=== PATIENT | female | born 1995 | race Caucasian/White ===

== ENCOUNTER 2019-06-15 17:10 | Emergency (ER) | payer OTHER ==
[2019-06-15 17:20] VITALS: BP 124/67
[2019-06-15 17:55] LABS: BASOPHILS % (AUTO) 0.2 %; EOSINOPHILS # (AUTO) 0.1 10^3/uL (0.0-0.7); EOSINOPHILS % (AUTO) 0.9 %; HGB - HEMOGLOBIN 11.7 g/dL (12.0-16.0); LYMPHOCYTES # (AUTO) 2.8 10^3/uL (1.5-3.5); MEAN CORPUSCULAR HEMOGLOBIN 30.7 pg (27.0-31.0); MEAN CORPUSCULAR HGB CONC 33.7 g/dL (32.0-36.0); MEAN CORPUSCULAR VOLUME 91.1 fL (81.0-99.0); MEAN PLATELET VOLUME 10.6 fL (7.9-10.8); MONOCYTES # (AUTO) 0.6 10^3/uL (0.0-1.0); MONOCYTES % (AUTO) 5.8 %; NEUTROPHILS # (AUTO) 6.1 10^3/uL (1.5-6.6); NEUTROPHILS % (AUTO) 63.4 %; PLT - PLATELET COUNT 349 10^3/uL (130-450); RED BLOOD COUNT 3.81 10^6/uL (4.20-5.40); RED CELL DISTRIBUTION WIDTH 13.3 % (12.0-15.0); WHITE BLOOD COUNT 9.6 x10^3/uL (4.8-10.8)
--- NOTE | 2019-06-15 17:55 | ED Physician Documentation ---
PD HPI NVD - Stated complaint Stated Complaint: 11 WKS, concerns - Chief complaint Chief Complaint: Abd Pain - History obtained from History obtained from: Patient - History of Present Illness Timing - onset: Other (G1 at 11 weeks was sick last week for 5 days with fever, body aches, vomiting. She is all better now but wonders if this had any effect on her . [place] did [place] have any openings. She feels fine now without cramping, bleeding, nausea, urinary complaints.) Review of Systems Constitutional: denies: Fever, Chills, Myalgias, Fatigue Nose: denies: Rhinorrhea / runny nose, Congestion Throat: denies: Sore throat Respiratory: denies: Dyspnea, Cough GI: denies: Abdominal Pain, Nausea, Vomiting PD PAST MEDICAL HISTORY - Allergies Allergies/Adverse Reactions: Allergies Allergy/AdvReac Type Severity Reaction Status Date / Time No Known Drug Allergies Allergy Verified 06/15/19 17:13 PD ED PE NORMAL - Vitals Vital signs reviewed: Yes - General General: Alert and oriented X 3, No acute distress - Abdomen Abdomen: Normal bowel sounds, Soft, Non tender, Other (Bedside ultrasound shows single live intrauterine with a rate of 143 and positive motion) - Neuro Neuro: Alert and oriented X 3, Normal speech Results - Vitals Vitals: Vital Signs - 24 hr 06/15/19 17:13 Temperature 36.6 C Heart Rate 72 Respiratory 16 Rate Blood Pressure 124/67 O2 Saturation 100 Oxygen O2 Source Room air - Labs Labs: Laboratory Tests 06/15/19 06/15/19 06/15/19 17:14 17:14 17:57 WBC 9.6 RBC 3.81 L Hgb 11.7 L Hct 34.7 L MCV 91.1 MCH 30.7 MCHC 33.7 RDW 13.3 Plt Count 349 MPV 10.6 Neut # (Auto) 6.1 Lymph # (Auto) 2.8 [place] # (Auto) 0.6 Eos # (Auto) 0.1 Baso # (Auto) 0.0 Absolute Nucleated RBC 0.00 Nucleated RBC % 0.0 Sodium 137 Potassium 3.6 Chloride 101 Carbon Dioxide 23 Anion Gap 13.0 BUN 9 Creatinine 0.6 Estimated GFR (MDRD) 126 Glucose 90 Calcium 9.3 Total Bilirubin 0.3 AST 23 ALT 25 Alkaline Phosphatase 61 Total Protein 7.5 Albumin 3.4 Globulin 4.1 Albumin/Globulin Ratio 0.8 L Lipase 27 Urine Color YELLOW Urine Clarity CLEAR Urine pH 6.5 Ur Specific [place] 1.015 Urine Protein NEGATIVE Urine Glucose (UA) NEGATIVE Urine Ketones TRACE Urine Occult Blood NEGATIVE Urine Nitrite NEGATIVE Urine Bilirubin NEGATIVE Urine Urobilinogen 0.2 (NORMAL) Ur Leukocyte Esterase NEGATIVE Ur Microscopic Review NOT INDICATED Urine Culture Comments NOT INDICATED PD MEDICAL DECISION MAKING - ED course ED course: This is a G1 at 11 weeks who had a flulike illness last week and now has concerns about the health of her baby. No abnormalities on exam or labs of note and she was reassured. Departure - Departure Disposition: 01 Home, Self Care Clinical Impression: Viral syndrome Qualifiers: Weeks of gestation: 11 weeks Qualified Code(s): Z3A.11 - 11 weeks gestation of Condition: Good Record reviewed to determine appropriate education?: Yes Instructions: ED Viral Syndrome Comments: Your work-up today was negative, no specific follow-up is needed except for routine care as long as you remain asymptomatic.
[2019-06-15 18:05] LABS: BILIRUBIN,URINE NEGATIVE (NEGATIVE); GLUCOSE, URINE (UA) NEGATIVE (NEGATIVE); KETONES,URINE (UA) TRACE mg/dL (NEGATIVE); LEUKOCYTE ESTERASE, URINE NEGATIVE (NEGATIVE); NITRITE,URINE NEGATIVE (NEGATIVE); OCCULT BLOOD,URINE NEGATIVE (NEGATIVE); PH,URINE 6.5 PH (5.0-7.5); PROTEIN,URINE NEGATIVE (NEGATIVE); UROBILINOGEN,URINE 0.2 (NORMAL) E.U./dL (NORMAL)
[2019-06-15 18:06] LABS: CLARITY,URINE CLEAR (CLEAR)
[2019-06-15 18:10] LABS: ALBUMIN 3.4 g/dL (3.2-5.5); ALBUMIN/GLOBULIN RATIO 0.8 (1.0-2.2); BILIRUBIN,TOTAL 0.3 mg/dL (0.2-1.0); CALCIUM 9.3 mg/dL (8.5-10.3); CREATININE 0.6 mg/dL (0.4-1.0); TOTAL PROTEIN 7.5 g/dL (6.7-8.2)
== END 2019-06-15 18:27 | disposition home or self-care (01) ==
LOC: ED 17:10
DX: O98.511 Other viral diseases complicating pregnancy, first trimester (principal); B34.9 Viral infection, unspecified; Z3A.11 11 weeks gestation of pregnancy
CPT/HCPCS: 36415; 80053; 81001; 81003; 83690; 84702; 85025; 86900; 86901; 87086; 99282; 99283

== ENCOUNTER 2019-11-15 14:51 | Outpatient (CLI) | payer OTHER ==
[2019-11-15 15:30] LABS: BASOPHILS % (AUTO) 0.3 %; EOSINOPHILS # (AUTO) 0.1 10^3/uL (0.0-0.7); EOSINOPHILS % (AUTO) 0.9 %; HGB - HEMOGLOBIN 10.1 g/dL (12.0-16.0); LYMPHOCYTES # (AUTO) 2.5 10^3/uL (1.5-3.5); LYMPHOCYTES % (AUTO) 26.5 %; MEAN CORPUSCULAR HEMOGLOBIN 29.4 pg (27.0-31.0); MEAN CORPUSCULAR HGB CONC 32.5 g/dL (32.0-36.0); MEAN CORPUSCULAR VOLUME 90.4 fL (81.0-99.0); MEAN PLATELET VOLUME 10.6 fL (7.9-10.8); MONOCYTES # (AUTO) 0.8 10^3/uL (0.0-1.0); MONOCYTES % (AUTO) 8.8 %; NEUTROPHILS # (AUTO) 5.7 10^3/uL (1.5-6.6); NEUTROPHILS % (AUTO) 61.7 %; PLT - PLATELET COUNT 302 10^3/uL (130-450); RED BLOOD COUNT 3.44 10^6/uL (4.20-5.40); RED CELL DISTRIBUTION WIDTH 13.4 % (12.0-15.0); WHITE BLOOD COUNT 9.3 x10^3/uL (4.8-10.8)
[2019-11-15 16:44] VITALS: BP 109/69
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
== END 2019-11-15 15:55 | disposition home or self-care (01) ==
LOC: WFO 14:51 → FBP 14:54 → WFO 15:55
PROVIDERS: ATTEND Obstetrics & Gynecology
DX: Z04.1 Encounter for examination and observation following transport accident (principal)
CPT/HCPCS: 36415; 85025; 86850; 86900; 86901; 99213

== ENCOUNTER 2021-10-15 16:25 | Outpatient (CLI) | payer OTHER ==
[2021-10-15 16:55] LABS: BILIRUBIN,URINE NEGATIVE (NEGATIVE); GLUCOSE, URINE (UA) NEGATIVE (NEGATIVE); KETONES,URINE (UA) NEGATIVE (NEGATIVE); LEUKOCYTE ESTERASE, URINE NEGATIVE (NEGATIVE); NITRITE,URINE NEGATIVE (NEGATIVE); OCCULT BLOOD,URINE NEGATIVE (NEGATIVE); PROTEIN,URINE NEGATIVE (NEGATIVE); UROBILINOGEN,URINE 0.2 (NORMAL) E.U./dL (NORMAL)
[2021-10-15 17:06] LABS: CLARITY,URINE CLEAR (CLEAR)
[2021-10-15 17:15] LABS: WBC,URINE 0-3 /HPF (0-5)
[2021-10-15 17:16] LABS: BACTERIA,URINE Few /HPF (None Seen); RBC,URINE 0-5 /HPF (0-5); SQUAMOUS EPITHELIAL CELL,UR FEW Squamous (<= Few)
== END 2021-10-15 16:26 | disposition home or self-care (01) ==
LOC: LAB.R 16:25
PROVIDERS: ATTEND Obstetrics & Gynecology
DX: Z32.01 Encounter for pregnancy test, result positive (principal)
CPT/HCPCS: 81001; 87086

== ENCOUNTER 2021-10-22 15:55 | Outpatient (CLI) | payer OTHER ==
--- NOTE | 2021-10-22 16:56 | Ultrasound Report ---
PROCEDURE: OB First Trimester INDICATIONS: + PREG TEST OUTSIDE/PRIOR DATING DATA: Last menstrual period (LMP): 08/22/2021. LMP-based estimated date of delivery (SALLY): 05/29/2022. First dating scan (date and location): 10/22/2021. Estimated date of delivery (SALLY) from first dating scan: 05/13/2022. The below data below was generated using the ultrasound SALLY of 05/13/2022 TECHNIQUE: Real-time scanning was performed of the fetus and maternal pelvic organs, with image documentation. COMPARISON: None FINDINGS: Living first trimester intrauterine with crown-rump length and heart beat Embryo: 4.1 cm, 11 weeks 0 days Heart rate: 157 bpm There is a small perigestational bleed measuring 1.9 x 0.7 x 3.4 cm. Measurement variability in dating: +/- 4 weeks by LMP, +/- 7 days by mean sac diameter (use before 6 weeks gestation if crown-rump length not able to be measured), +/- 5 days by crown-rump length (6-12 weeks gestation). Maternal organs: Ovaries. There is a small right corpus luteum cyst. IMPRESSION: Living first trimester intrauterine with crown-rump length and heart beat. Reviewed by: Otoniel Leyva MD on 10/22/2021 4:55 PM PST Approved by: Otoniel Leyva MD on 10/22/2021 4:55 PM PST Station ID: [id number]
== END 2021-10-22 15:56 | disposition home or self-care (01) ==
LOC: DI 15:55
PROVIDERS: ATTEND Obstetrics & Gynecology
DX: Z32.01 Encounter for pregnancy test, result positive (principal)

== ENCOUNTER 2021-10-30 13:35 | Outpatient (CLI) | payer OTHER ==
[2021-10-30 14:06] LABS: BASOPHILS % (AUTO) 0.4 %; EOSINOPHILS # (AUTO) 0.1 10^3/uL (0.0-0.7); EOSINOPHILS % (AUTO) 0.8 %; HCT - HEMATOCRIT 37.1 % (37.0-47.0); HGB - HEMOGLOBIN 12.5 g/dL (12.0-16.0); LYMPHOCYTES # (AUTO) 2.4 10^3/uL (1.5-3.5); LYMPHOCYTES % (AUTO) 23.4 %; MEAN CORPUSCULAR HEMOGLOBIN 29.8 pg (27.0-31.0); MEAN CORPUSCULAR HGB CONC 33.7 g/dL (32.0-36.0); MEAN CORPUSCULAR VOLUME 88.3 fL (81.0-99.0); MEAN PLATELET VOLUME 10.6 fL (7.9-10.8); MONOCYTES # (AUTO) 0.5 10^3/uL (0.0-1.0); MONOCYTES % (AUTO) 4.7 %; NEUTROPHILS # (AUTO) 7.3 10^3/uL (1.5-6.6); NEUTROPHILS % (AUTO) 70.2 %; PLT - PLATELET COUNT 320 10^3/uL (130-450); RED CELL DISTRIBUTION WIDTH 13.7 % (12.0-15.0); WHITE BLOOD COUNT 10.3 x10^3/uL (4.8-10.8)
[2021-10-31 11:47] LABS: HEPATITIS B SURFACE ANTIGEN NON-REACTIVE (NON-REACTIVE); HEPATITIS C ANTIBODY NON-REACTIVE (NON-REACTIVE)
[2021-10-31 15:16] LABS: HIV AG/AB 4TH GEN NON-REACTIVE (NON-REACTIVE)
== END 2021-10-30 13:36 | disposition home or self-care (01) ==
LOC: LAB 13:35
PROVIDERS: ATTEND Obstetrics & Gynecology
DX: Z36.89 Encounter for other specified antenatal screening (principal)
CPT/HCPCS: 36415; 85025; 86592; 86762; 86787; 86803; 86850; 86900; 86901; 87340; 87389

== ENCOUNTER 2021-11-05 08:12 | Outpatient (CLI) | payer OTHER ==
[2021-11-06 22:02] LABS: CHLAMYDIA TRACHOMATIS DNA NEGATIVE (NEGATIVE); NEISSERIA GONORRHOEAE DNA NEGATIVE (NEGATIVE); TRICHOMONAS VAGINALIS DNA NEGATIVE (NEGATIVE)
== END 2021-11-05 08:13 | disposition home or self-care (01) ==
LOC: LAB.R 08:12
PROVIDERS: ATTEND Obstetrics & Gynecology
DX: Z11.3 Encounter for screening for infections with a predominantly sexual mode of transmission (principal)
CPT/HCPCS: 87491; 87591; 87661

== ENCOUNTER 2021-12-26 18:00 | Outpatient (CLI) | payer OTHER ==
--- NOTE | 2021-12-26 20:16 | Ultrasound Report ---
PROCEDURE: OB Detailed Eval INDICATIONS: SUPERVISION OF NL PREG OUTSIDE/PRIOR DATING DATA: Last menstrual period (LMP): 08/22/2021. LMP-based estimated date of delivery (SALLY): 05/29/2022. First dating scan (date and location): 10/22/2021. Estimated date of delivery (SALLY) from first dating scan: 05/13/2022. The below data below was generated using the ultrasound SALLY of 05/13/2022 TECHNIQUE: Real-time scanning was performed of the fetus, with image documentation and biometric measurements. Endovaginal scanning: Not performed COMPARISON: 10/22/2021 FINDINGS: General: A single living intrauterine gestation is present. Presentation: Transverse with head to maternal left Placenta: Placental position is posterior, without previa. Amniotic fluid index: 12.1 cm, within normal limits for gestational age. heart rate: 160 beats per minute. Maternal cervical canal: 4.6 cm long and closed; normal length is 2.5 cm or more. biometrics: Biparietal diameter: 4.6 cm, 20 weeks 0 days Head circumference: 17.4 cm, 20 weeks 0 days Abdominal circumference: 16.0 cm, 21 weeks 1 day Femur length: 3.16 cm, 19 weeks 6 days Estimated gestational age from initial scan: 20 weeks 2 days Composite gestational age from present scan: 20 weeks 0 days Estimated weight and percentile: 355 g, 55th percentile Measurement variability in biometric dating: +/- 10 days from 12-20 weeks gestation, +/- 2 weeks from 20-30 weeks gestation, +/- 3 weeks at 30 weeks gestation or later. Anatomic survey: Neuro: Ventricles are normal at less than 10 mm. Cisterna magna is normal at 3-11 mm. Cerebellum i s normal in size and morphology. Nuchal skin fold: Normal at less than 6 mm between 14 and 20 weeks gestational age. Face: Nose and lips, facial profile are normal. Spine: No evidence for spina bifida. Heart: 4-chambered heart is present, with normal ventricular outflow tracts. Diaphragm: Diaphragm is intact. Stomach: Left-sided stomach is present. Kidneys: No hydronephrosis. Normal is less than 5 mm in 2nd trimester, less than 7 mm in 3rd trimester. Cord: 3 vessel cord has orthotopic insertion. Bladder: Normal in size. Extremities: All 4 extremities are visualized. IMPRESSION: 1. Living second trimester intrauterine . Current ultrasound age is 2 days less than clinica l age based on initial ultrasound. 2. Normal anatomy study. Reviewed by: Otoniel Leyva MD on 12/26/2021 8:15 PM PST Approved by: Otoniel Leyva MD on 12/26/2021 8:15 PM [facility] Station ID: [id number]
== END 2021-12-26 20:00 ==
LOC: DI 18:00
PROVIDERS: ATTEND Obstetrics & Gynecology
DX: Z34.02 Encounter for supervision of normal first pregnancy, second trimester (principal); Z3A.20 20 weeks gestation of pregnancy

== ENCOUNTER 2022-02-13 09:43 | Outpatient (CLI) | payer OTHER ==
[2022-02-13 10:56] LABS: HCT - HEMATOCRIT 29.5 % (37.0-47.0); HGB - HEMOGLOBIN 9.8 g/dL (12.0-16.0); MEAN CORPUSCULAR HEMOGLOBIN 29.6 pg (27.0-31.0); MEAN CORPUSCULAR HGB CONC 33.2 g/dL (32.0-36.0); MEAN CORPUSCULAR VOLUME 89.1 fL (81.0-99.0); MEAN PLATELET VOLUME 10.2 fL (7.9-10.8); RED BLOOD COUNT 3.31 10^6/uL (4.20-5.40); RED CELL DISTRIBUTION WIDTH 13.3 % (12.0-15.0); WHITE BLOOD COUNT 8.7 x10^3/uL (4.8-10.8)
== END 2022-02-13 09:44 | disposition home or self-care (01) ==
LOC: LAB 09:43
PROVIDERS: ATTEND Obstetrics & Gynecology
DX: Z34.00 Encounter for supervision of normal first pregnancy, unspecified trimester (principal); Z36.89 Encounter for other specified antenatal screening
CPT/HCPCS: 36415; 82950; 85027

== ENCOUNTER 2022-02-18 18:16 | Outpatient (CLI) | payer OTHER ==
[2022-02-18 18:35] VITALS: BP 107/67
[2022-02-18 19:19] LABS: BILIRUBIN,URINE NEGATIVE (NEGATIVE); GLUCOSE, URINE (UA) NEGATIVE (NEGATIVE); KETONES,URINE (UA) NEGATIVE (NEGATIVE); LEUKOCYTE ESTERASE, URINE TRACE (NEGATIVE); NITRITE,URINE NEGATIVE (NEGATIVE); OCCULT BLOOD,URINE NEGATIVE (NEGATIVE); PROTEIN,URINE NEGATIVE (NEGATIVE); UROBILINOGEN,URINE 0.2 (NORMAL) E.U./dL (NORMAL)
[2022-02-18 19:21] LABS: CLARITY,URINE HAZY (CLEAR)
[2022-02-18 19:27] LABS: BACTERIA,URINE Many /HPF (None Seen); RBC,URINE 0-5 /HPF (0-5); SQUAMOUS EPITHELIAL CELL,UR MOD Squamous (<= Few)
--- NOTE | 2022-02-18 20:05 | PROVIDER PROGRESS NOTE ---
- HPI Chief Complaint: Labor Current : Vital Signs Temperature 98.6 F 02/18/22 18:25 Heart Rate 98 02/18/22 18:25 Respiratory Rate 16 02/18/22 18:25 Blood Pressure 107/67 02/18/22 18:25 O2 Saturation 99 02/18/22 18:25 Temperature 98.6 F 02/18/22 18:25 Heart Rate 98 02/18/22 18:25 Respiratory Rate 16 02/18/22 18:25 Blood Pressure 107/67 02/18/22 18:25 O2 Saturation 99 02/18/22 18:25 - Procedures NST Procedure: 02/18/22 Start 18:27 Stop 19:21 EFM 140 mod nohelia 15x15 accels no decels TOCO: quiet Service Date of procedure: 02/18/22 - Plan Plan: ID: Patient is a @ 28 weeks gestation who presents for assessment of labor. HPI: Patient reports having contractions since 1600 today. Describes regular abdominal tightening with low back pain appx every 3 minutes, lasting about a minute. Denies LOF, VB. Affirms movement. States she is going through a divorce and had an extremely stressful day today. Had prior delivery at 41 wga. PNC: LMP: 08/22/2021 SALLY by LMP:05/29/2022 Initial U/S:10/22/2021 @ 11w0d NOT c/w LMP with an SALLY of 05/13/2022 FINAL SALLY: 05/13/2022 O pos/Rubella- equivocal VZV:immune Genetic testing: Quad screen ordered 11/30/21, but did not perform as was no longer interested. FAS: WNL EFW 305g 55th%ile, 3VC, placenta posterior without previa, FÁTIMA wnl Glucola- ordered 01/25 Influenza: Received this season TDAP Covid: Moderna #03 April 2021 #04 May 2021 GBS @ ___ wks HSV: One outbreak previously. Prophylaxis at 36 weeks. Breast pump Rx MOD: . pp contraception: Likely nuvaring vs partner vasectomy pap:05/29/2021 NILM, 05/12/2019 LSIL ROS: As per HPI, otherwise remaining systems are negative. PE: VS: 98.6 83 107/67 18 99 GEN: NAD HEAD: NCAT EYES: No scleral icterus or conjunctival injection CV: RRR RESP: CTAB, normal effort ABD: gravid, S&NT/ND PSYCH: appropriate affect NEURO: alert and oriented, normal gait and coordination EXT: WWP FFN neg GCCT/trich wnl Yeast/BV neg UA c/w contamination Formal US shows CL 5.0 cm A/P: 26 yo at 28 wga here with concern for contractions. DX: False labor CL 5.0 cm in prelim read/FFN neg CAT I/AGA tracing UA c/w contamination, no indication of infection Reassured patient regarding lack of evidence for labor Recommended continued intake of water Warning signs reviewed FU in clinic this week DOS: 02/18/22 NST read: 02/18/22
--- NOTE | 2022-02-18 20:20 | Ultrasound Report ---
PROCEDURE: OB Limited INDICATIONS: CONTRA. 28WK CX l OUTSIDE/PRIOR DATING DATA: Last menstrual period (LMP): 08/22/2021. LMP-based estimated date of delivery (SALLY): 05/29/2022. First dating scan (date and location): 10/22/2021. Estimated date of delivery (SALLY) from first dating scan: 05/13/2022. The below data below was generated using the ultrasound SALLY of 05/13/2022 TECHNIQUE: Real-time scanning was performed of the fetus, with image documentation. Endovaginal scanning: Performed for better visualization of the cervix. COMPARISON: OB ultrasound 12/26/2021 and 10/22/2021 FINDINGS: A single living intrauterine gestation is present. Presentation: Breech Placenta: Placental position is posterior, without previa. Amniotic fluid index: 16.7 cm, normal for gestational age. Single deepest vertical fluid pocket: 4.9 cm. heart rate: 145 beats per minutes. Maternal cervical canal: 5.1 cm long; normal length is 2.5 cm or more. Estimated gestational age from initial scan: 28 weeks 0 days. IMPRESSION: 1.Single live intrauterine . 2.Amniotic fluid index within normal limits. 3.Cervix is closed and measures 5.1 cm. Reviewed by: Yeison Boyle MD on 02/18/2022 8:19 PM PDT Approved by: Yeison Boyle MD on 02/18/2022 8:19 PM PDT Station ID: [id number]
[2022-02-18 22:36] LABS: BACTERIAL VAGINOSIS DNA NEGATIVE (NEGATIVE); CANDIDA GLABRATA DNA NEGATIVE (NEGATIVE); CANDIDA GROUP DNA NEGATIVE (NEGATIVE); CANDIDA KRUSEI DNA NEGATIVE (NEGATIVE); TRICHOMONAS VAGINALIS DNA NEGATIVE (NEGATIVE)
[2022-02-18 23:22] LABS: CHLAMYDIA TRACHOMATIS DNA NEGATIVE (NEGATIVE); NEISSERIA GONORRHOEAE DNA NEGATIVE (NEGATIVE)
== END 2022-02-18 19:50 | disposition home or self-care (01) ==
LOC: WFO 18:16 → FBP 18:20 → WFO 19:50
PROVIDERS: ATTEND Obstetrics & Gynecology
DX: O47.03 False labor before 37 completed weeks of gestation, third trimester (principal); O32.1XX0 Maternal care for breech presentation, not applicable or unspecified; Z3A.28 28 weeks gestation of pregnancy
CPT/HCPCS: 81001; 81003; 81514; 82731; 87086; 87491; 87591; 87661; 99215

== ENCOUNTER 2022-03-15 06:54 | Outpatient (CLI) | payer OTHER ==
--- NOTE | 2022-03-15 10:42 | Ultrasound Report ---
PROCEDURE: OB F/U or Repeat INDICATIONS: UTERINE SIZE DATE DISCREPANCY OUTSIDE/PRIOR DATING DATA: Last menstrual period (LMP): August 22, 2021. LMP-based estimated date of delivery (SALLY): May 29, 2022. First dating scan (date and location): October 22, 2021. Estimated date of delivery (SALLY) from first dating scan: May 13, 2022. TECHNIQUE: Real-time scanning was performed of the fetus, with image documentation and biometric measurements. COMPARISON: Prior studies dating back to October 22, 2021 FINDINGS: General: A single living intrauterine gestation is present. Presentation: Breech Placenta: Placental position is posterior, without previa. Amniotic fluid index: 15.3 cm, appropriate for gestational age. heart rate: 144 beats per minute. Maternal cervical canal: 4.7 cm long; normal length is 2.5 cm or more. biometrics: Biparietal diameter: 8 cm Head circumference: 30.1 cm Abdominal circumference: 26 cm Femur length: 5.9 cm Estimated gestational age from initial scan: 31 weeks, 4 days. Composite gestational age from present scan: 30 weeks, 4 days Estimated weight and percentile: 1644.9 g; 17.6 percentile Measurement variability in biometric dating: +/- 10 days from 12-20 weeks gestation, +/- 2 weeks from 20-30 weeks gestation, +/- 3 weeks at 30 weeks gestation or more. Other: Not applicable. IMPRESSION: Live single intrauterine gestation as detailed above. Reviewed by: Christ Raymond MD on 03/15/2022 10:41 AM PDT Approved by: Christ Raymond MD on 03/15/2022 10:41 AM PDT Station ID: [id number]
== END 2022-03-15 06:55 | disposition home or self-care (01) ==
LOC: DI 06:54
PROVIDERS: ATTEND Obstetrics & Gynecology
DX: O26.843 Uterine size-date discrepancy, third trimester (principal); Z3A.30 30 weeks gestation of pregnancy

== ENCOUNTER 2022-04-19 11:00 | Outpatient (CLI) | payer OTHER | END 2022-04-19 23:59 | disposition home or self-care (01) | LOC: LAB.WC 11:00 | PROVIDERS: ATTEND Nurse Practitioner | DX: Z36.85 Encounter for antenatal screening for Streptococcus B (principal) | CPT/HCPCS: 87797 ==

== ENCOUNTER 2022-04-25 16:56 | Outpatient (CLI) | payer OTHER ==
--- NOTE | 2022-04-26 13:14 | Ultrasound Report ---
PROCEDURE: OB F/U or Repeat INDICATIONS: UTERINE SIZE DATE DISCREPANCY OUTSIDE/PRIOR DATING DATA: Last menstrual period (LMP): 08/22/2021. LMP-based estimated date of delivery (SALLY): 05/29/2022. First dating scan (date and location): 10/22/2021. Estimated date of delivery (SALLY) from first dating scan: 05/13/2022. The below data below was generated using the first trimester ultrasound SALLY of 05/13/2022 TECHNIQUE: Real-time scanning was performed of the fetus, with image documentation and biometric measurements. Endovaginal scanning: Not performed COMPARISON: None. FINDINGS: General: A single living intrauterine gestation is present. Presentation: Vertex Placenta: Placental position is posterior, without previa. Amniotic fluid index: 14.4 cm, normal for gestational age. Largest pocket is 5.4 cm heart rate: 166 beats per minute. Maternal cervical canal: Closed and 5.2 cm long; normal length is 2.5 cm or more. biometrics: Biparietal diameter: 9.4 cm, 38 weeks, 1 day Head circumference: 34.0 cm, 39 weeks, 1 day Abdominal circumference: 33.3 cm, 37 weeks, 1 day Femur length: 6.8 cm, 34 weeks, 6 days Estimated gestational age from initial scan: 37 weeks, 3 days. Composite gestational age from present scan: 37 weeks, 2 days Estimated weight and percentile: 3071 g, 45th percentile Measurement variability in biometric dating: +/- 10 days from 12-20 weeks gestation, +/- 2 weeks from 20-30 weeks gestation, +/- 3 weeks at 30 weeks gestation or more. IMPRESSION: 1. Single living intrauterine with measurements in good agreement with initially assigned g estational age. 2. Normal amniotic fluid volume. Reviewed by: Abimbola Oswald MD on 04/26/2022 1:12 PM PDT Approved by: Abimbola Oswald MD on 04/26/2022 1:12 PM PDT Station ID: [id number]
== END 2022-04-25 16:57 | disposition home or self-care (01) ==
LOC: DI 16:56
PROVIDERS: ATTEND Obstetrics & Gynecology
DX: O26.843 Uterine size-date discrepancy, third trimester (principal); Z3A.37 37 weeks gestation of pregnancy

== ENCOUNTER 2022-08-05 22:49 | Emergency (ER) | payer OTHER ==
--- NOTE | 2022-08-05 23:48 | ED Physician Documentation ---
History of Present Illness - Stated complaint Stated Complaint: FEVER,CHILLS - Chief complaint Chief Complaint: General - History obtained from History obtained from: Patient - Additonal information Additional information: 26-year-old woman, previously healthy, occasional vape pen user (has not smoked since illness), presents with URI symptoms for the past 4 days and chest tightness tonight. Her 2 children also have URIs. Patient endorses fever 4 days ago but not since. Cough is nonproductive. Patient has nasal congestion, rhinorrhea, ear fullness. Chest tightness is nonpleuritic. Denies shortness of breath. PERC negative. Review of Systems Ten Systems: 10 systems reviewed and negative Constitutional: reports: Myalgias, Fatigue. denies: Fever, Chills Nose: reports: Rhinorrhea / runny nose, Congestion Cardiac: reports: Other (chest tightness) Respiratory: reports: Cough. denies: Dyspnea GI: denies: Nausea PD PAST MEDICAL HISTORY - Past Surgical History Past Surgical History: No - Allergies Allergies/Adverse Reactions: Allergies Allergy/AdvReac Type Severity Reaction Status Date / Time No Known Drug Allergies Allergy Verified 08/05/22 22:55 - Social History Does the pt smoke?: No Smoking Status: Former smoker Does the pt drink ETOH?: No Does the pt have substance abuse?: No PD ED PE NORMAL - Vitals Vital signs reviewed: Yes - General General: Alert and oriented X 3, No acute distress, Well developed/nourished - HEENT HEENT: Atraumatic, PERRL, EOMI, Moist mucous membranes, Pharynx benign, Other (TMs clear) - Neck Neck: Supple, no meningeal sign - Cardiac Cardiac: RRR - Respiratory Respiratory: No respiratory distress, Clear bilaterally - Abdomen Abdomen: Non tender, Non distended - Derm Derm: Normal color, Warm and dry - Extremities Extremities: No edema - Neuro Neuro: Alert and oriented X 3, No motor deficit, No sensory deficit - Psych Psych: Normal mood, Normal affect Results - Vitals Vitals: Vital Signs - 24 hr 08/05/22 22:51 Temperature 36 C L Heart Rate 86 Respiratory 18 Rate Blood Pressure 123/76 O2 Saturation 99 Oxygen O2 Source Room air PD MEDICAL DECISION MAKING - ED course ED course: Unlikely to be PE given PERC negative. Discussed option of providing chest x-ray To evaluate for pneumonia and shared decision was made to monitor symptoms since her lungs sounds are clear, she has no fever at this time, and I think will be of limited utility at this time. She will follow-up with her primary doctor this week. Return precautions given. Departure - Departure Disposition: 01 Home, Self Care Clinical Impression: URI (upper respiratory infection) Condition: Good Instructions: ED URI Viral Comments: You were seen in the emergency department for evaluation of upper respiratory symptoms and chest tightness. Your vital signs were normal and your physical exam uncovered no emergent findings. Please follow-up with your primary doctor this week and return to the emergency department if you experience any new or worsening symptoms or other concerns.
[2022-08-06] VITALS: BP 111/73
[2022-08-06 00:53] LABS: B. PARAPERTUSSIS- RESP PCR PAN NOT DETECTED; B. PERTUSSIS- RESP PCR PANEL NOT DETECTED; C. PNEUMONIAE- RESP PCR PANEL NOT DETECTED; CORONAVIRUS 229E-RESP PCR NOT DETECTED; CORONAVIRUS HKU1-RESP PCR NOT DETECTED; CORONAVIRUS NL63-RESP PCR NOT DETECTED; CORONAVIRUS OC43-RESP PCR NOT DETECTED; HUMAN METAPNEUMOVIRUS NOT DETECTED; INFLUENZA A- RESP PCR PANEL NOT DETECTED; INFLUENZA B - RESP PCR PANEL NOT DETECTED; M. PNEUMONIAE- RESP PCR PANEL NOT DETECTED; PARAINFLUENZA VIRUS 1 NOT DETECTED; PARAINFLUENZA VIRUS 2 NOT DETECTED; PARAINFLUENZA VIRUS 3 NOT DETECTED; PARAINFLUENZA VIRUS 4 NOT DETECTED; RHINOVIRUS/ENTEROVIRUS NOT DETECTED; RSV- RESP PCR PANEL NOT DETECTED; SARS-CoV-2 -RESP PCR PANEL NOT DETECTED
== END 2022-08-06 | disposition home or self-care (01) ==
LOC: ED 22:49
DX: J06.9 Acute upper respiratory infection, unspecified (principal); F17.290 Nicotine dependence, other tobacco product, uncomplicated; Z20.822 Contact with and (suspected) exposure to COVID-19
CPT/HCPCS: 87633; 99282; 99283